=== PATIENT | female | born 1990 | race Caucasian/White ===

== ENCOUNTER 2021-12-23 02:25 | Emergency (ER) | payer MEDICAID | END 2021-12-23 04:21 | disposition left against medical advice (07) | LOC: ER 02:35 | DX: Z53.21 Procedure and treatment not carried out due to patient leaving prior to being seen by health care provider (principal) ==

== ENCOUNTER 2024-01-23 00:17 | Emergency (ER) | payer MEDICAID, OTHER | END 2024-01-23 00:26 | disposition left against medical advice (07) | LOC: ER 00:19 | DX: M79.673 Pain in unspecified foot (principal); Z53.21 Procedure and treatment not carried out due to patient leaving prior to being seen by health care provider ==

== ENCOUNTER 2024-03-29 10:40 | Emergency (ER) | payer MEDICAID, OTHER ==
[~2024-03-29] VITALS: Ht 157.5 cm; Wt 47.6 kg
[2024-03-29 10:55] VITALS: BP 95/71; TEMP 98.6; O2SAT 99
== END 2024-03-29 12:02 | disposition home or self-care (01) ==
LOC: ER 10:47
DX: Z13.89 Encounter for screening for other disorder (principal); F20.9 Schizophrenia, unspecified; W01.0XXA Fall on same level from slipping, tripping and stumbling without subsequent striking against object, initial encounter; Y93.89 Activity, other specified; Y92.89 Other specified places as the place of occurrence of the external cause; Y99.8 Other external cause status
CPT/HCPCS: 98960